=== PATIENT | female | born 1965 | race Caucasian/White ===

== ENCOUNTER → 2016-07-02 | Outpatient (CLI) | payer OTHER ==
--- NOTE | 2016-07-02 09:54 | MM ---
Reason for exam: additional evaluation requested from prior study. History: Benign US biopsy breast VAD LT of the left breast, December 26, 2015. Benign US biopsy breast VAD RT of the right breast, December 26, 2015. Physical Findings: Nurse did not find any significant physical abnormalities on exam. MG Diagnostic Mammo w CAD TEJA Bilateral CC and MLO view(s) were taken. Prior study comparison: December 26, 2015, right breast US breast RT. The breast tissue is heterogeneously dense. This may lower the sensitivity of mammography. Previous mammotome biopsy in the right and left breast. No significant new findings when compared with previous films. These results were verbally communicated with the patient and result sheet given to the patient on 07/02/16. ASSESSMENT: Benign, BI-RAD 2 RECOMMENDATION: Routine screening mammogram of both breasts in 6 months. Back on schedule.
== END | disposition home or self-care (01) ==
LOC: RADMAMWWP 08:46
PROVIDERS: ATTEND Surgery
DX: N63 Unspecified lump in breast (principal)

== ENCOUNTER → 2017-07-31 | Outpatient (CLI) | payer OTHER ==
--- NOTE | 2017-08-04 09:04 | MM ---
Reason for exam: screening (asymptomatic). Last mammogram was performed 1 year and 1 month ago. History: Family history of breast cancer in paternal grandmother. Benign US biopsy breast VAD LT of the left breast, December 26, 2015. Benign US biopsy breast VAD RT of the right breast, December 26, 2015. Physical Findings: A clinical breast exam by your physician is recommended on an annual basis and results should be correlated with mammographic findings. MG Screening Mammo w CAD Bilateral CC and MLO view(s) were taken. Prior study comparison: July 02, 2016, bilateral MG diagnostic mammo w CAD TEJA. The breast tissue is heterogeneously dense. This may lower the sensitivity of mammography. Previous mammotome biopsy in the right and left breast. No significant changes when compared with prior studies. ASSESSMENT: Negative, BI-RAD 1 RECOMMENDATION: Routine screening mammogram of both breasts in 1 year.
== END | disposition home or self-care (01) ==
LOC: RADMAMWWP 15:19
PROVIDERS: ATTEND Obstetrics & Gynecology
DX: Z12.31 Encounter for screening mammogram for malignant neoplasm of breast (principal)
CPT/HCPCS: 77067

== ENCOUNTER → 2023-02-04 | Outpatient (CLI) | payer OTHER ==
--- NOTE | 2023-02-05 12:38 | MM ---
Reason for Exam: Screening (asymptomatic). Last mammogram was performed 5 year(s) and 6 month(s) ago. Patient History: Menarche at age 15. First Full-Term at age 24. 12/26/2015, Benign Core Biopsy on the right side. 12/26/2015, Benign Core Biopsy on the left side. Paternal grandmother had breast cancer. Risk Values: Lacey 5 year model risk: 1.6%. NCI Lifetime model risk: 10.9%. Prior Study Comparison: 07/02/2016 Bilateral Diagnostic Mammogram, [facility]. 07/31/2017 Bilateral Screening Mammogram, [facility]. Tissue Density: The breast tissue is heterogeneously dense. This may lower the sensitivity of mammography. Findings: Analyzed By CAD. Bilateral breast biopsy clips. There is no suspicious group of microcalcifications or new suspicious mass. Overall Assessment: Benign, BI-RAD 2 Management: Screening Mammogram of both breasts in [address] [facility] will attempt to contact patient to return for supplemental views and ultrasound if indicated. Patient should continue monthly self-breast exams. A clinical breast exam by your physician is recommended on an annual basis. This exam should not preclude additional follow-up of suspicious palpable abnormalities. Note on Lacey scores and lifetime risk: 1. A Lacey score greater than 3% is considered moderate risk. If this is the case, consider specialist referral to assess eligibility for a risk reducing agent. 2. If overall lifetime risk for the development of breast cancer is 20% or higher, the patient may qualify for future screening with alternating mammogram and breast MRI. Electronically signed and approved by: Clarence Boykin DO
== END | disposition home or self-care (01) ==
LOC: RADMAMWWP 15:22
PROVIDERS: ATTEND Family Medicine
DX: Z12.31 Encounter for screening mammogram for malignant neoplasm of breast (principal); Z80.3 Family history of malignant neoplasm of breast
CPT/HCPCS: 77063; 77067

== ENCOUNTER → 2023-02-06 | Outpatient (CLI) | payer OTHER ==
--- NOTE | 2023-02-07 01:19 | MR ---
EXAMINATION TYPE: MR knee LT wo con DATE OF EXAM: 02/06/2023 COMPARISON: NONE HISTORY: Left knee pain swelling especially behind the knee for over 3 months. Popliteal cyst. [employer] al derangement. TECHNIQUE: Multiplanar, multisequence images of the knee is performed without IV contrast. FINDINGS: MEDIAL MENISCUS: Subtle oblique signal medial meniscus coronal image 20 appears to involve central dilma dy and posterior horn on sagittal images without definitive extension to articular surface. LATERAL MENISCUS: Anterior and posterior horns are intact without tear. CRUCIATE LIGAMENTS: The posterior cruciate ligament is intact and unremarkable. There is increased si gnal and fraying of the anterior cruciate ligament. COLLATERAL LIGAMENTS: The medial collateral ligament and lateral collateral ligament complex are inta ct and unremarkable. EXTENSOR MECHANISM: Visualized quadriceps and patellar tendons are intact. EFFUSION: No significant suprapatellar joint effusion. POPLITEAL CYST: Moderate to large size popliteal/conklin cyst is confirmed. Some ill-defined fluid infe riorly suggest leak. TRICOMPARTMENT SPACES: Mild to moderate tricompartment joint space loss most prominent patellofemoral compartment. No significant spurring. CARTILAGE: Tricompartment articular cartilage is preserved. BONE MARROW SIGNAL: Some heterogeneous increased T2 signal central tibia at the ACL insertion. OTHER: No additional significant abnormality is appreciated. IMPRESSION: 1. Significant partial tearing of the ACL. 2. Moderate to large size leaking popliteal cyst. 3. Mild to moderate tricompartment degenerative changes most prominent patellofemoral compartment as detailed above. 4. At least intrasubstance tear medial meniscus involving posterior horn and central body.
== END | disposition home or self-care (01) ==
LOC: RADMRIMAIN 07:37
PROVIDERS: ATTEND Orthopaedic Surgery
DX: M23.611 Other spontaneous disruption of anterior cruciate ligament of right knee (principal); M23.222 Derangement of posterior horn of medial meniscus due to old tear or injury, left knee; M71.22 Synovial cyst of popliteal space [Baker], left knee; F17.200 Nicotine dependence, unspecified, uncomplicated

== ENCOUNTER 2023-02-25 11:48 | Day surgery (SDC) | payer OTHER ==
[2023-02-25 13:12] VITALS: RESP 16; TEMP 97.8
[2023-02-25] MEDS ORDERED: TRIAMCINOLONE ACETONIDE 40 MG/ML 1 ML VIAL INTRABURSA STA (13:15)
[2023-02-25 14:02] VITALS: BP 134/64; PULSE 54
--- NOTE | 2023-02-25 14:47 | US ---
EXAMINATION TYPE: US guided asp/inj major joint DATE OF EXAM: 02/25/2023 Comparison: None Clinical History: 57-year-old female M25.562 pain in knee Procedure: 1. Ultrasound of the left popliteal fossa 2. Aspiration of the Otto's cyst with ultrasound guidance. 3. Injection of Kenalog with ultrasound guidance. TECHNIQUE: The procedure, risks, and alternatives, were discussed with the patient, who requested harshil t we proceed. The consent form was signed, and teach-back occurred. The site/side of the procedure wa s marked with a line with participation by the patient. The accompanying paperwork was verified for c onsistency. A directed history and physical exam was performed prior to the procedure. Medication rec onciliation was performed by ancillary personnel. A critical pause was performed with assisting champ henry just prior to the procedure and the patient's identity was confirmed using 2 identifiers. Imagin g guidance was utilized to select the precise skin entry point just prior to the procedure. Initial ultrasound shows a small to moderate-sized, mildly complex Otto's cyst measuring 5.8 x 4.0 x 1.4 cm. The left popliteal fossa was prepped and draped in the usual sterile fashion and local 1% li docaine anesthesia was instilled. The procedure was performed with the patient in prone position. Under ultrasound guidance and trocar technique, a 5 Faro[place] One-step catheter system was introduced in to left-sided Otto's cyst. Ultrasound confirmed the position of the catheter. Under ultrasound surve illance, aspiration yielded 20 mL of normal yellow, clear synovial fluid. The Otto's cyst collapsed completely though the mildly thickened synovium continued to outline the collapsed cyst space. Subsequently, 1 mL of Kenalog-40 was injected into the collapsed space. As the needle was withdrawn, total of 1.5 mL 1% lidocaine was injected into the collapsed space and infiltrated along the catheter tract. The patient tolerated the procedure well. There were no immediate complications. After the procedure, the patient's condition was unchanged. Es timated blood loss was minimal. The patient was instructed on routine postprocedure precautions, incl uding protecting the area to prevent infection. IMPRESSION: Ultrasound guided left Otto's cyst aspiration and steroid injection. The cyst collapsed completely a nd 20 mL of normal synovial fluid was discarded. No immediate complication.
== END 2023-02-25 14:15 | disposition home or self-care (01) ==
LOC: RADPROMAIN 11:48
PROVIDERS: ATTEND Orthopaedic Surgery
DX: M71.22 Synovial cyst of popliteal space [Baker], left knee (principal)
CPT/HCPCS: 20611; J3301

== ENCOUNTER → 2024-09-08 | Outpatient (CLI) | payer OTHER ==
--- NOTE | 2024-09-08 07:38 | MM ---
Reason for Exam: Screening (asymptomatic). Last mammogram was performed 1 year(s) and 7 month(s) ago. Patient History: Menarche at age 15. First Full-Term at age 24. 12/26/2015, Benign Core Biopsy on the right side. 12/26/2015, Benign Core Biopsy on the left side. Paternal grandmother had breast cancer. Risk Values: Lacey 5 year model risk: 1.7%. NCI Lifetime model risk: 10.7%. Prior Study Comparison: 07/02/2016 Bilateral Diagnostic Mammogram, [facility]. 07/31/2017 Bilateral Screening Mammogram, [facility]. 02/04/2023 Bilateral MG 3D screening mammo w/cad, [facility]. Tissue Density: The breasts are heterogeneously dense, which may obscure small masses. Findings: Analyzed By CAD. Bilateral breast biopsy clips. Right breast: There is no suspicious group of microcalcifications or new suspicious mass. Left breast: There is no suspicious group of microcalcifications or new suspicious mass. Overall Assessment: Benign, BI-RAD 2 Management: Screening Mammogram of both breasts in [address] [facility] will attempt to contact patient to return for supplemental views and ultrasound if indicated. Patient should continue monthly self-breast exams. A clinical breast exam by your physician is recommended on an annual basis. This exam should not preclude additional follow-up of suspicious palpable abnormalities. Note on Lacey scores and lifetime risk: 1. A Lacey score greater than 3% is considered moderate risk. If this is the case, consider specialist referral to assess eligibility for a risk reducing agent. 2. If overall lifetime risk for the development of breast cancer is 20% or higher, the patient may qualify for future screening with alternating mammogram and breast MRI. [facility], , 09/08/2024 7:35 AM. Electronically signed and approved by: Clarence Boykin DO
== END | disposition home or self-care (01) ==
LOC: RADMAMWWP 06:56
PROVIDERS: ATTEND Family Medicine
DX: Z12.31 Encounter for screening mammogram for malignant neoplasm of breast (principal); R92.333 Mammographic heterogeneous density, bilateral breasts; Z80.3 Family history of malignant neoplasm of breast
CPT/HCPCS: 77067